=== PATIENT | male | born 1990 | race Caucasian/White ===

== ENCOUNTER 2022-01-10 11:52 | Emergency (ER) | payer OTHER ==
[~2022-01-10] VITALS: Ht 185.4 cm; Wt 108.9 kg
--- NOTE | 2022-01-10 12:05 | NUR ---
DR TAY AT BEDSIDE FOR EVAL
[2022-01-10 12:23] VITALS: BP 144/79
--- NOTE | 2022-01-10 12:23 | NUR ---
Patient discharged to home in stable condition. Written and verbal after care instructions given. Patient verbalizes understanding of instruction.
== END 2022-01-10 12:24 | disposition home or self-care (01) ==
LOC: ER 11:52
DX: I10 Essential (primary) hypertension (principal); K21.9 Gastro-esophageal reflux disease without esophagitis